=== PATIENT | female | born 1965 | race Caucasian/White ===

== ENCOUNTER → 2017-12-16 | Outpatient (CLI) | payer BC ==
[~2017-12-16] MED LIST: ASPI-1471 PO; CHOL200051 PO; CIPR-344 PO; ESTR10TA4 VG; GABA-549 PO; HYDR-2966 PO; HYDR12.561 PO; INSULIN PUMP; LEVO88TA45 PO; LOSA50TA67 PO; METR-160 PO; OMEG500C7 PO
--- NOTE | 2017-12-16 16:24 | RADIOLOGY IMAGING REPORT ---
FACILITY: [facility] PATIENT NAME: AMA METCALF : [id number] MR: [id number] V: [id number] EXAM DATE: ORDERING PHYSICIAN: INDIRA BROOKE TECHNOLOGIST: Arline Neves PROCEDURE:BILATERAL DIGITAL SCREENING MAMMOGRAM WITH CAD ASSISTED INTERPRETATION & 3D TOMOSYNTHESIS COMPARISON:Prior mammograms 12/11/16, 12/08/15, 11/18/14, 12/10/13, 11/05/12. INDICATIONS:screening FINDINGS: Moderately heterogeneous fibroglandular tissue is seen throughout the breasts. Most of the parenchymal pattern has remained stable allowing for difference in mammographic technique & patient positioning. There is a focal area of increased density in the lateral portion Left breast in Zone 2 for which spot compression view is recommended. DIAGNOSTIC CATEGORY 0--INCOMPLETE: NEED ADDITIONAL IMAGING EVALUATION. RECOMMENDATIONS: ADDITIONAL MAMMOGRAPHIC VIEWS REQUIRED: LEFT BREAST. IMPRESSION: BIRADS 0: Incomplete Additional views of the Left breast recommended as described. Dictated by: Subha Fleming M.D. on 12/16/2017 at 9:37 Transcribed by: KALEB on 12/16/2017 at 9:48 Approved by: Subha Fleming M.D. on 12/16/2017 at 16:23 [facility]
== END ==
LOC: MAMO 02:20
PROVIDERS: ATTEND Family Medicine
DX: Z12.31 Encounter for screening mammogram for malignant neoplasm of breast (principal); R92.8 Other abnormal and inconclusive findings on diagnostic imaging of breast
CPT/HCPCS: 77063; 77067

== ENCOUNTER → 2018-04-02 | Outpatient (CLI) | payer BC | LOC: US 01:58 | PROVIDERS: ATTEND Internal Medicine Cardiovascular Disease | DX: I34.1 Nonrheumatic mitral (valve) prolapse (principal); I07.1 Rheumatic tricuspid insufficiency | CPT/HCPCS: 93306 ==

== ENCOUNTER → 2018-12-29 | Outpatient (CLI) | payer BC ==
[~2018-12-29] MED LIST changes: +INSU100C14 SQ; -METR-160 PO; +METR500T15 PO; +ROSU10TA PO
--- NOTE | 2018-12-31 08:25 | RADIOLOGY IMAGING REPORT ---
FACILITY: [facility] PATIENT NAME: AMA METCALF : [id number] MR: [id number] V: [id number] EXAM DATE: [id number] ORDERING PHYSICIAN: ALEX LEON TECHNOLOGIST: Grace Cali PROCEDURE:BILATERAL DIAGNOSTIC DIGITAL MAMMOGRAM WITH CAD ASSISTED INTERPRETATION & 3D TOMOSYNTHESIS COMPARISON:Prior mammograms 12/16/17, 12/11/16, 11/18/14, 12/10/13. INDICATIONS:further evaluation from 12/16/2017 FINDINGS: The breasts are heterogeneously dense which can obscure small masses. The parenchymal pattern has remained stable allowing for difference in mammographic technique & patient positioning. The focal area of increased density in the lateral portion of the Left breast on the prior Left CC view appears more compressible and less prominent. DIAGNOSTIC CATEGORY 2--BENIGN FINDING. RECOMMENDATIONS: ROUTINE MAMMOGRAM AND CLINICAL EVALUATION. IMPRESSION: BIRADS 2: Benign finding. No significant abnormality is seen. Dictated by: Subha Fleming M.D. on 12/29/2018 at 17:32 Transcribed by: KALEB on 12/30/2018 at 9:57 Approved by: Subha Fleming M.D. on 12/31/2018 at 8:23 [facility]
== END ==
LOC: MAMO 01:13
PROVIDERS: ATTEND Family Medicine
DX: R92.8 Other abnormal and inconclusive findings on diagnostic imaging of breast (principal)
CPT/HCPCS: 77062; 77066